=== PATIENT | female | born 1960 | race Caucasian/White ===

== ENCOUNTER 2023-05-11 07:43 | Emergency (ER) | payer BC, SELFPAY ==
[2023-05-11 08:10] VITALS: BP 132/88; PULSE 74; RESP 20; TEMP 36.7; O2SAT 96; BMI 36.5
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
--- NOTE | 2023-05-11 08:30 | CRLHL7_ITS ---
For Patients: As a result of the Century Cures Act, medical imaging exams and procedure reports are released immediately into your electronic medical record. You may view this report before your referring provider. If you have questions, please contact your health care provider. Indication: Trauma with deformity Comparison: None available. Technique: AP, lateral, and oblique views right wrist were obtained. Findings: There is demonstration of subtle cortical deformity of the distal radius likely representing a nondisplaced impaction fracture. Degenerative changes of the radiocarpal joint are appreciated. There is moderate soft tissue swelling with pronator fat pad displacement. Impression: Subtle cortical deformity of the distal radius consistent with impaction fracture with moderate soft tissue swelling and fat pad displacement. Dictated by Micah Peña MD @ 05/11/2023 8:53:07 AM (Electronically Signed)
== END 2023-05-11 09:32 | disposition home or self-care (01) ==
PROVIDERS: Emergency Provider Family Medicine
DX: S52.501A Unspecified fracture of the lower end of right radius, initial encounter for closed fracture (principal); V49.9XXA Car occupant (driver) (passenger) injured in unspecified traffic accident, initial encounter
CPT/HCPCS: 29125; 73110; 99283

== ENCOUNTER 2023-09-04 13:00 | Outpatient (RCR) | payer BC, SELFPAY ==
--- NOTE | 2023-07-02 14:38 | OT.OPOE ---
OT Outpatient Ortho Eval OT Outpatient Ortho Eval* Start: 07/02/23 14:08 Freq: Status: Active Protocol: Document 07/02/23 14:08 JUANY (Rec: 07/02/23 14:36 JUANY [id number]) E-signed By Halie Jordan, OTR/L, CLT OT OP Ortho Eval Details Complexity Complexity Medium Insurance Information Insurance Information Medicaid,Blue Cross/[employer] Outpatient History/Precautions Current Condition/Medical Diagnosis Referring Provider Dr. Te Hidalgo Treatment Diagnosis Stiffness of R wrist, Pain in R wrist Date of Onset 05/09/23 Other Precautions Note from provider visit on 06/14/23: Distal radius fracture is healing uneventfully. However, patient does have some stiffness of her wrist secondary to being immobilized in the short-arm cast. Recommendation at this time is for home exercise program and occupational therapy for wrist range of motion exercises with gradual return to activities as tolerated. Medical Conditions HTN,Arthritis Other Conditions Severe CMC arthritis of bilateral hands, Diamond's palsy Medical/Functional History Medical History Reviewed Yes Prior Level of Function/Mobility Patient is retired, lives with spouse in [place]. Prior to Injury she was fully independent with all ADLs/ IADLs Social History Employment Status Retired Ortho Subjective Subjective Subjective I have so much stiffness I can't use my right hand so everything is hard right now Pain Assessment Pain Present Pain Present Pain Reported Location Right Hand Description Tightness,Pressure,Throbbing, With Movement Intensity 6 OT Objective Data Hand Hand Dominance Right Hand Function Patient unable to make a full fist with R hand, lacking 1.5 inches More pain in middle and index fingers. Skin flakey and shedding from edema R hand wrist crease measured at 19.5 cm's and L non- effected hand was 17.9 cm's OT Problems Problems Problems Decreased Strength,Decreased Range of Motion,Decreased Dexterity,Pain,Decreased Coordination,Lifting,Gripping, Pinching Other Problems Writing,Opening Containers, Dressing,Computer,Fasteners, Sleeping Patient Potential Excellent Assessment Assessment Assessment This is a pleasant 62 year old [id number] female who arrives to the clinic for evaluation following a right distal radius fracture, which she sustained 05/09/23 (almost 8 weeks post injury). Injury occurred after she fell while stepping off of her couch and landed on her outstretched right hand. Two days after the injury, she was seen emergency department where x- rays revealed a nondisplaced distal radius fracture. She was subsequent placed into a splint. Patient had a nonoperative treatment consisting of immobilization in a short-arm cast and then instructed to avoid any weight -bearing or heavy lifting with the right upper extremity. She return for follow-up evaluation and repeat x-rays of the right wrist out of the cast. Imagining showed healing with no change in alignment. Provider then recommended therapy for stiffness of her wrist secondary to being immobilized in the short-arm cast. Recommendation at this time is for home exercise program and occupational therapy for wrist range of motion exercises with gradual return to activities as tolerated. In clinic visit, patient was also provided with a removable wrist brace, which she is wearing for heavy activity and while sleeping at night (as needed for comfort the next 1-2 weeks). Patient is working on weaning off the brace but currently feels more confident sleeping in it at [facility]. Patient is highly motivated and an excellent candiate for skilled therapy. She is instructed return for follow-up evaluation in 6 weeks on an as-needed basis should she have any persistent stiffness and or wrist discomfort. Occupational Therapy Treatment Plan - OP Potential Rehabilitation Potential Excellent Barriers Barriers to goal attainment Severe Arthritis Set Goals Goals Set with Patient Yes Goals Goals 1. Through activity participation in skilled therapy sessions, and consistency in performing a customized HEP, patient will improve capacity of tendons and muscles to manage load in order to have less pain with ADLs, work, leisure activities and IADLs. 2. Patient will resume the ability to hook her bra Independently with her R ( dominant) hand 3. Patient will resume the ability to wash her hair in the shower using the R ( dominant) hand Independently 4. Patient will wean from wearing the R hand/wrist braces at [facility] and during activity. 5. Patient will be Indep with a individualized, comprehensive HEP with participation >20 mins per day 5-6 days per week. Target Date 8 weeks Treatment Plan Treatment Plan Evaluation,Edema Control,Joint Mobilization,Manual Therapy, Ultrasound,Therapeutic Exercise,Therapeutic Activities,Education Expected Frequency 1-2x Week Expected Duration 8-10 Weeks Home Program Home Program Home Program Initiated Home Program Specifics Access Code: [email or web address] URL: [email or web address] Date: 07/02/2023 Prepared by: Halie Jordan Exercises - Seated Forearm Pronation and Supination AROM - 1 x daily - 7 x weekly - 3 sets - 10 reps - Wrist AROM Radial Ulnar Deviation - 1 x daily - 7 x weekly - 3 sets - 10 reps - Wrist AROM Wrist Circumduction - 1 x daily - 7 x weekly - 3 sets - 10 reps - Wrist Alphabet - 1 x daily - 7 x weekly - 3 sets - 10 reps - Forearm AAROM Supination and Pronation with Ball - 1 x daily - 7 x weekly - 3 sets - 10 reps - Thumb Opposition - 1 x daily - 7 x weekly - 3 sets - 10 reps - Wrist Tendon Gliding - 1 x daily - 7 x weekly - 3 sets - 10 reps - Wrist Prayer Stretch - 1 x daily - 7 x weekly - 3 sets - 10 reps - Finger Spreading - 1 x daily - 7 x weekly - 3 sets - 10 reps - Seated Finger Composite Flexion Stretch - 1 x daily - 7 x weekly - 3 sets - 10 reps - Hand Towel Scrunching - 1 x daily - 7 x weekly - 3 sets - 10 reps - Wrist AAROM Flexion and Extension - 1 x daily - 7 x weekly - 3 sets - 10 reps Certification Certification I Certify That: Therapy Services Provided, Therapy Plan Established, Therapy Plan Reviewed Recertification Information Recertification Information Initial Certification Date 07/02/23 Recertification Due Date 09/30/23 Provider Signature Shows Agreement With POC & Medical Necessity Physician Comment/Change Comment or Changes Physician NPI Number #
== END 2023-09-04 14:02 | disposition home or self-care (01) ==
PROVIDERS: Visit Provider Orthopaedic Surgery
DX: S52.501D Unspecified fracture of the lower end of right radius, subsequent encounter for closed fracture with routine healing (principal); M25.631 Stiffness of right wrist, not elsewhere classified; M25.531 Pain in right wrist; Z51.89 Encounter for other specified aftercare
CPT/HCPCS: 97110; 97140; 97166; X5282

== ENCOUNTER 2023-11-20 17:28 | Emergency (ER) | payer BC, SELFPAY ==
[2023-11-20 17:39] VITALS: BP 146/86; PULSE 84; RESP 18; TEMP 36.7; O2SAT 97; BMI 35.7
[2023-11-20] MEDS: cefuroxime axetiL 500 MG TABLET PO (18:46)
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
== END 2023-11-20 18:49 | disposition home or self-care (01) ==
LOC: ED 18:35
PROVIDERS: Emergency Provider Emergency Medicine; PCP Family Medicine
DX: J32.0 Chronic maxillary sinusitis (principal)
CPT/HCPCS: 99283; A9270

== ENCOUNTER 2023-11-21 09:39 | Emergency (ER) | payer BC, SELFPAY ==
[2023-11-21 09:47] VITALS: BP 185/87; PULSE 80; RESP 18; TEMP 37.3; O2SAT 96; BMI 36.5
--- NOTE | 2023-11-21 10:09 | ED_ITS ---
HPI - General Adult General Chief complaint: Skin/Abscess/Foreign Body Stated complaint: Sinus infection, face swelling Time Seen by Provider: 11/21/23 09:59 History of Present Illness HPI narrative: Patient was seen last night for sinusitis, started 1 dose of/cefuroxime. She has got some right cheek swelling and maxillary tenderness. She has no skin lesions no weakness of the face or eyelid droop. The patient was examined by Dr. Yu last night noted some purulence from the right nostril. Patient was concerned that the cefuroxime was 500s to 250 a dose. She also received prednisone in the past when she had a sinusitis not helped her quite a bit. Related Data Home Medications Medication Instructions Recorded Confirmed amlodipine 5 mg tablet 5 mg PO DAILY 05/11/23 11/20/23 fluticasone propionate 50 1 spray intranasal BID 05/11/23 11/20/23 mcg/actuation nasal spray,suspension losartan 100 1 tab PO DAILY 05/11/23 11/20/23 mg-hydrochlorothiazide 25 mg tablet montelukast 10 mg tablet 10 mg PO QPM 05/11/23 11/20/23 beclomethasone dipropionate 40 2 inh inhalation BID 11/20/23 11/20/23 mcg/actuation HFA breath activated aerosol (Qvar RediHaler) Previous Rx's Medication Instructions Recorded cefuroxime axetil 500 mg tablet 500 mg PO BID #20 tabs 11/20/23 prednisone 20 mg tablet 20 mg PO BID #10 tabs 11/21/23 Allergies Allergy/AdvReac Type Severity Reaction Status Date / Time No Known Drug Allergies Allergy Verified 11/20/23 17:44 Review of Systems 2 Status of ROS: Reports: 6 or more systems reviewed and unremarkable except as noted in History and below [facility] Medical History (Updated 11/21/23 @ 10:07 by Raphael Dickinson MD) Arthritis of both hands ?M19.041 - Primary osteoarthritis, right hand (ICD-10) ?M19.042 - Primary osteoarthritis, left hand (ICD-10) Asthma ?J45.909 - Unspecified asthma, uncomplicated (ICD-10) GERD (gastroesophageal reflux disease) ?K21.9 - Gastro-esophageal reflux disease without esophagitis (ICD-10) Surgical History History of cholecystectomy ?Z90.49 - Acquired absence of other specified parts of digestive tract (ICD- 10) History of endometrial ablation ?Z98.890 - Other specified postprocedural states (ICD-10) Social History Smoking Status: Never smoker Do you use any of these nicotine containing products: None Second hand tobacco smoke exposure: No How often do you have a drink containing alcohol: monthly or less How many standard drinks containing alcohol do you have on a typical day: 1 or 2 How often do you have six or more drinks on one occasion: Never AUDIT-C Alcohol total score: 1 Non-prescribed substance use: denies use service: No Exam Narrative: Exam Narrative: Objective: Patient's blood pressure is elevated her temp is 99.1? She has got right minimal maxillary sinus tenderness and slight soft tissue swelling, no cellulitis or redness, mouth is clear. Neck is supple. Const: Vital Signs, click to edit/add: Vital Signs - 24 hr 11/21/23 09:47 Temperature 99.1 F Pulse Rate [Pulse Oximeter] 80 Respiratory Rate 18 Blood Pressure [Ri ght Forearm] 185/87 H Pulse Oximetry 96 Oxygen Delivery Me thod Room Air Course Vital Signs Vital signs: Initial Vital Signs Temperature 99.1 F 11/21/23 09:47 Temperature Source Temporal Artery Scan 11/21/23 09:47 Pulse Rate 80 11/21/23 09:47 Pulse Rhythm Regular 11/21/23 09:47 Respiratory Rate 18 11/21/23 09:47 Blood Pressure 185/87 H 11/21/23 09:47 Blood Pressure Mean 119 H 11/21/23 09:47 Blood Pressure Position Sitting 11/21/23 09:47 Pulse Oximetry 96 11/21/23 09:47 Oxygen Delivery Method Room Air 11/21/23 09:47 Vital Signs Temperature 99.1 F 11/21/23 09:47 Pulse Rate 80 11/21/23 09:47 Respiratory Rate 18 11/21/23 09:47 Blood Pressure 185/87 H 11/21/23 09:47 Pulse Oximetry 96 11/21/23 09:47 Oxygen Delivery Method Room Air 11/21/23 09:47 Temperature 99.1 F 11/21/23 09:47 Pulse Rate 80 11/21/23 09:47 Respiratory Rate 18 11/21/23 09:47 Blood Pressure 185/87 H 11/21/23 09:47 Pulse Oximetry 96 11/21/23 09:47 Oxygen Delivery Method Room Air 11/21/23 09:47 Medications Administered Medications: Discontinued Medications Generic Name Dose Route Start Last Admin Trade Name Gato PRN Reason Stop Dose Admin Prednisone 20 mg 11/21/23 10:15 11/21/23 10:24 Prednisone 20 Mg Tablet PO 11/21/23 10:16 20 mg ONCE ONE Administration Medical Decision Making MDM Narrative Medical decision making narrative: 63-year-old female with right maxillary sinusitis with no evidence of Diamond's palsy or other facial weakness at this time. She does have cefuroxime at home I would add prednisone 20 mg now and then b.i.d. for 3-5 days. Warm pack the face hot liquids. Recheck with Primary Care not improving changes or concerns. Also discussed Diamond's palsy in if she notices any weakness or lid leg she should return to the ED promptly. Discharge Plan Discharge Clinical Impression: Facial swelling, Sinusitis Patient Disposition: Home w/ Parent or Adult Condition: Stable Additional Instructions: Continue the cefuroxime, will add prednisone to her regimen. Warm pack the fac e, hot liquids to drink. Recheck with primary care in the next few days not improving, return to ED sooner worsening or changes. Activity Level: Light activity Discharge Diet: Regular Prescriptions: New prednisone 20 mg tablet 20 mg PO BID Qty: 10 0RF No Action amlodipine 5 mg tablet 5 mg PO DAILY losartan-hydrochlorothiazide 100-25 mg tablet 1 tab PO DAILY montelukast 10 mg tablet 10 mg PO QPM fluticasone propionate 50 mcg/actuation spray,suspension 1 spray INTRANASAL BID Qvar RediHaler 40 mcg/actuation HFA aerosol breath activated 2 inh INHALATION BID cefuroxime axetil 500 mg tablet 500 mg PO BID Qty: 20 0RF Follow Up/Referrals: Maria T Fowler MD [Primary Care Provider] - Stand Alone Forms: [facility] Info Instructions
[2023-11-21] MEDS: predniSONE 20 MG TABLET PO (10:24)
== END 2023-11-21 10:25 | disposition home or self-care (01) ==
LOC: ED 10:13
PROVIDERS: Emergency Provider Family Medicine; PCP Family Medicine
DX: J32.0 Chronic maxillary sinusitis (principal); R22.0 Localized swelling, mass and lump, head
CPT/HCPCS: 99283; 99284; J7512

== ENCOUNTER 2025-03-29 11:31 | Emergency (ER) | payer BC, SELFPAY ==
[2025-03-29 11:34] VITALS: BP 194/69; PULSE 77; RESP 18; TEMP 37.1; O2SAT 95; BMI 35.7
--- NOTE | 2025-03-29 11:49 | ED_ITS ---
HPI - General Adult General Time Seen by Provider: 11:49 Date Seen: 03/29/25 Chief complaint: Unspecified Complaint, Adult Stated complaint: light-headed, cough, runny nose Time Seen by Provider: 03/29/25 11:49 Source: patient and RN notes reviewed Mode of arrival: ambulatory Limitations: no limitations History of Present Illness HPI narrative: Yuliana is a very pleasant 64-year-old female who comes to the emergency room with lightheadedness ongoing cough and yellow and green nasal congestion. Yuliana notes the onset of a sore throat approximately 8 days ago. She was then working outside and when she came in began to experience body aches. She notes that 5 days ago she had the onset of clear nasal discharge and coughing. Since that time the nasal discharge did stop but now has recurred and is yellow. She notes the coughing continues although perhaps slightly better but her states that she is coughing so hard that he feels like she is going to vomit. When she coughs she gets very lightheaded. Notes that she is lightheaded when she 1st gets up in the morning but seems to worsen throughout the day. Does state that she has not been eating very much because she has no appetite and that she has not been sleeping very well. She does note ear pain pre dating the onset of the sore throat. Throughout all of this she has not had a fever. Mild intermittent nausea without vomiting has been noted. At rest patient has no lightheadedness. Denies vertigo or spinning sensation. Related Data Home Medications ?Medication ?Instructions ?Recorded ?Confirmed amlodipine 5 mg tablet 5 mg PO DAILY 05/11/23 03/29/25 fluticasone propionate 50 1 spray intranasal BID 05/11/23 03/29/25 mcg/actuation nasal spray,suspension losartan 100 1 tab PO DAILY 05/11/23 03/29/25 mg-hydrochlorothiazide 25 mg tablet montelukast 10 mg tablet 10 mg PO QPM 05/11/23 03/29/25 beclomethasone dipropionate 40 2 inh inhalation BID 11/20/23 03/29/25 mcg/actuation HFA breath activated aerosol (Qvar RediHaler) Previous Rx's ?Medication ?Instructions ?Recorded cefuroxime axetil 500 mg tablet 500 mg PO BID #20 tabs 11/20/23 cefuroxime axetil 500 mg tablet 500 mg PO BID #20 tabs 03/29/25 prednisone 20 mg tablet 20 mg PO BID #10 tabs 03/29/25 Allergies Allergy/AdvReac Type Severity Reaction Status Date / Time No Known Drug Allergies Allergy Verified 11/20/23 17:44 Review of Systems Status of ROS: Reports: 6 or more systems reviewed and unremarkable except as noted in History and below [facility] Medical History Arthritis of both hands ?M19.041 - Primary osteoarthritis, right hand (ICD-10) ?M19.042 - Primary osteoarthritis, left hand (ICD-10) Asthma ?J45.909 - Unspecified asthma, uncomplicated (ICD-10) GERD (gastroesophageal reflux disease) ?K21.9 - Gastro-esophageal reflux disease without esophagitis (ICD-10) Surgical History History of cholecystectomy ?Z90.49 - Acquired absence of other specified parts of digestive tract (ICD- 10) History of endometrial ablation ?Z98.890 - Other specified postprocedural states (ICD-10) Social History Smoking Status: Never smoker Do you use any of these nicotine containing products: None Second hand tobacco smoke exposure: No How often do you have a drink containing alcohol: monthly or less How many standard drinks containing alcohol do you have on a typical day: 1 or 2 How often do you have six or more drinks on one occasion: Never AUDIT-C Alcohol total score: 1 Non-prescribed substance use: denies use service: No Exam Narrative: Exam Narrative: Alert and oriented. EOM is full. Face symmetrical. Oral cavity shows erythema on the soft palate. No significant swelling. Neck is supple without l ymphadenopathy. Heart with a regular rate and rhythm. Lungs are with decreased breath sounds in the bases few crackles noted on the right. Abdomen is soft nontender. Moving all extremities. Right TM is obscured by cerumen. Left TM is partially covered by cerumen in the anterior aspect bulging TM without significant erythema in the lower 2/3. No pain with external manipulation of the ear in the ear canal itself is without erythema. Const: Vital Signs, click to edit/add: Vital Signs - 24 hr 03/29/25 11:34 03/29/25 13:14 Temperature 98.7 F 97.2 F L Pulse Rate [Right Pulse Oximeter] 77 71 Respiratory Rate 18 18 Blood Pressure [Ri ght Forearm] 194/69 H 121/71 Pulse Oximetry 95 96 Oxygen Delivery Me thod Room Air Room Air Documenting provider has reviewed patient's vital signs: yes Course Course ED Course: Differential diagnosis includes but is not limited to URI/viral infection/pertusses/COVID/influenza/RSV. Also includes pneumonia, otitis media and/or sinusitis. Suggest antibiotic treatment for obvious left otitis. No evidence of central vertigo but lightheadedness suggests a multifactorial and peripheral process. Likely otitis combine with lack of sleep as well as lack of p.o. intake. Chest x-ray pending given the cough. Triple swab as well as pertusses pending. Vital Signs Vital signs: Initial Vital Signs Temperature 98.7 F 03/29/25 11:34 Temperature Source Temporal Artery Scan 03/29/25 11:34 Pulse Rate 77 03/29/25 11:34 Pulse Rhythm Regular 03/29/25 11:34 Pulse Strength 3+ Normal 03/29/25 11:34 Respiratory Rate 18 03/29/25 11:34 Blood Pressure 194/69 H 03/29/25 11:34 Blood Pressure Mean 110 H 03/29/25 11:34 Blood Pressure Position Sitting 03/29/25 11:34 Pulse Oximetry 95 03/29/25 11:34 Oxygen Delivery Method Room Air 03/29/25 11:34 Vital Signs Temperature 98.7 F 03/29/25 11:34 Pulse Rate 77 03/29/25 11:34 Respiratory Rate 18 03/29/25 11:34 Blood Pressure 194/69 H 03/29/25 11:34 Pulse Oximetry 95 03/29/25 11:34 Oxygen Delivery Method Room Air 03/29/25 11:34 Temperature 97.2 F L 03/29/25 13:14 Pulse Rate 71 03/29/25 13:14 Respiratory Rate 18 03/29/25 13:14 Blood Pressure 121/71 03/29/25 13:14 Pulse Oximetry 96 03/29/25 13:14 Oxygen Delivery Method Room Air 03/29/25 13:14 Medical Decision Making MDM Narrative Medical decision making narrative: 1. Left otitis media-suggests cefuroxime 500 mg p.o. b.i.d. times 10 days. This is actually patient's request as she does have significant issues with other antibiotics including abdominal pain and vomiting. She may also have a coexisting sinus infection as she does appear to be prone to that. Did request that she follow up in 10-14 days time in order to have recheck of her ear to ensure resolution. She will also need to have irrigation of her ears bilaterally. As there is a large amount of cerumen. 2. URI-tested negative for COVID influenza and RSV today. Chest x-ray without evidence of pneumonia. 3. Lightheadedness-does appear to be a peripheral process. No evidence of vertigo. No evidence of continued symptoms in all positions. No evidence of nystagmus. Likely combination of lack of sleep, lack of food and fluids as well as otitis. 4. Disposition-home at this time. Patient is also requested prednisone which is noted to have helped her with her cough in the past she does have underlying asthma. Prednisone 20 mg p.o. b.i.d. x5 days. Both medications were sent to her pharmacy. Yuliana is requested to return for worsening symptoms, onset of new symptoms and as needed. Note initial blood pressure 194/69. Blood pressure prior to departure 121 systolic. Medical Records Medical records reviewed: Yes I reviewed the patient's medical records Lab Data Lab results reviewed: Yes I reviewed the patient's lab results Labs: Lab Results 03/29/25 03/29/25 Range/Units 11:42 12:28 SARS-CoV-2 (PCR) Negative SARS-CoV-2 (Negative) Influenza Type A (PCR) Negative PCR FLU A (Negative) Influenza Type B (PCR) Negative PCR FLU B (Negative) RSV (PCR) Negative PCR RSV (Negative) Lab Acknowledgement Test Added Imaging Data Chest x-ray: Attestation: I have reviewed the pertinent imaging results. My impression: No obvious infiltrates Radiologist's impression: Cardiovasculature and mediastinum: Heart size is normal. Unremarkable mediastinum. Lungs and pleural spaces: Low lung volumes lungs are otherwise clear. No sign of infiltrate or mass. No sign of pleural effusion. No pneumothorax. Bones and soft tissues: No significant findings. IMPRESSION: Negative chest. Discharge Plan Discharge Clinical Impression: URI (upper respiratory infection) Otitis media Qualifiers: Otitis media type: unspecified Chronicity: acute Qualified Code(s): H66.90 - Otitis media, unspecified, unspecified ear Patient Disposition: Home, Self-Care Condition: Unchanged Additional Instructions: Start antibiotic cefuroxime for treatment of left ear infection and potential sinus infection. Please be aware that your cough may be strictly viral. Chest x-ray did not show any evidence of a pneumonia. Prednisone as directed. Please push fluids as much as possible-not just water, include Powerade Gatorade broth etc.. Return to the emergency room for worsening symptoms. Follow-up with your primary MD for ear check in proximally 10-14 days. Prescriptions: New cefuroxime axetil 500 mg tablet 500 mg PO BID Qty: 20 0RF prednisone 20 mg tablet 20 mg PO BID Qty: 10 0RF No Action amlodipine 5 mg tablet 5 mg PO DAILY losartan-hydrochlorothiazide 100-25 mg tablet 1 tab PO DAILY montelukast 10 mg tablet 10 mg PO QPM fluticasone propionate 50 mcg/actuation spray,suspension 1 spray INTRANASAL BID Qvar RediHaler 40 mcg/actuation HFA aerosol breath activated 2 inh INHALATION BID cefuroxime axetil 500 mg tablet 500 mg PO BID Qty: 20 0RF Follow Up/Referrals: Maria T Fowler MD [Primary Care Provider] - Stand Alone Forms: [employer] Info Instructions
--- NOTE | 2025-03-29 12:06 | CRLHL7_ITS ---
For Patients: As a result of the Century Cures Act, medical imaging exams and procedure reports are released immediately into your electronic medical record. You may view this report before your referring provider. If you have questions, please contact your health care provider. INDICATION: Cough. TECHNIQUE: Chest 1 views. COMPARISON: None. FINDINGS: Cardiovasculature and mediastinum: Heart size is normal. Unremarkable mediastinum. Lungs and pleural spaces: Low lung volumes lungs are otherwise clear. No sign of infiltrate or mass. No sign of pleural effusion. No pneumothorax. Bones and soft tissues: No significant findings. IMPRESSION: Negative chest. Dictated by German Jacome MD @ 03/29/2025 1:16:52 PM (Electronically Signed)
[2025-03-29 12:46] LABS: PCR FLU A Negative PCR FLU A (Negative); PCR FLU B Negative PCR FLU B (Negative); PCR RSV Negative PCR RSV (Negative); SARS PCR* Negative SARS-CoV-2 (Negative)
[2025-03-29 13:14] VITALS: BP 121/71; PULSE 71; RESP 18; TEMP 36.2; O2SAT 96
--- OUTSIDE RECORDS SUMMARY | 2025-03-29 17:47 | XMS_ITS | Clinical Summary ---
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 0 1 Active ACETAMINOPHEN (TYLENOL EXTRA STRENGTH ORAL) Take by mouth. Active loratadine-pseudo ephedrine, 10-240 mg, 24 hr (CLARITIN-D 24 HOUR) 10-240 mg per tablet Take 1 tablet by mouth once daily. 0 7 Active omeprazole (PRILOSEC) 20 mg Delayed-Release capsuleIndication s:Gastro-esophage al reflux disease without esophagitis TAKE 1 CAPSULE DAILY 90 Capsule 1 Active amLODIPine (NORVASC) 10 mg tabletIndications :Essential hypertension Take 1 Tablet (10 mg) by mouth once daily. 90 Tablet 3 4 Active losartan-hydrochl orothiazide (HYZAAR) 100-25 mg tabletIndications :Essential hypertension, benign Take 1 Tablet by mouth once daily. 90 Tablet 3 4 Active montelukast (SINGULAIR) 10 mg tabletIndications :Allergy, unspecified, initial encounter Take 1 Tablet (10 mg) by mouth at bedtime. 90 Tablet 3 4 Active beclomethasone dipropionate (Qvar RediHaler) 40 mcg/actuation HFA inhalerIndication s:Allergy, unspecified, initial encounter Inhale 2 Puffs by mouth two times daily. Doesn't need a spacer or shaking. 1 Each 11 4 Active fluticasone (50 mcg per actuation) nasal solution (FLONASE)Indicati ons:Allergy, unspecified, initial encounter Inhale 1 [place] in both nostrils two times daily. 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 09/04/2017 Resolved Problems Problem Noted Date Diagnosed Date Resolved Date Body mass index (BMI) 37.0-37.9, adult 03/14/2022 04/25/2023 Herpes zoster without complication 03/14/2022 04/25/2023 Immunizations Immunization Administration Dates Next Due COVID-19 vaccine ([employer]) PF, MDV 02/08/2021 COVID-19 vaccine ([employer]TI [employer] Combine 30mcg/0.3mL) 12YO+ RONEL-SUCROSE PF, MDV 03/15/2022 Influenza A (H1N1), Inactivated 11/17/2009 Influenza Intradermal PF 18-64 yrs 08/13/2012 Influenza Virus, Unspecified 08/12/2005 Influenza, IIV3 (Age 6-35 mos) 08/12/2009 Influenza, IIV3 (Age >=3 years) 08/21/2014 Influenza, IIV4 12/16/2018, 7,10/30/2017,2015,08/17/2016 Influenza, IIV4 (=>6mos) MDV 07/22/2020,09/15/20 19,11/20/2015 Influenza, Intradermal Inactivated 08/13/2012 Pneumococcal Poly,23-Valent (Pneumovax) 09/25/2011,09/25/2011 Pneumococcal conj 13-Valent (Prevnar 13) 10/05/2014,10/05/2014 Td (Age >=7 Years) 10/16/2005 Tdap 06/24/2015 Zoster (Shingrix-RZV, recombinant) 10/08/2020, Family History Medical History Relation Name Comments Coronary artery disease Brother Amblyopia Father Coronary artery disease Father Cancer-breast Maternal Aunt Coronary artery disease Mother Heart attack Mother Kidney failure Mother Pulmonary embolism Mother Amblyopia Sister Relation Name Status Comments Brother Alive Father Maternal Aunt Mother Sister Social History Tobacco Use Types Packs/Day Years Used Date Smoking Tobacco: Never Smokeless Tobacco: Never Alcohol Use Standard Drinks/Week Comments Not Currently 0 (1 standard drink = 0.6 oz pur e alcohol) rare PHQ-2 Answer Date Recorded PHQ-2 TOTAL SCORE 0 07/01/2024 Social Connections Answer Date Recorded Frequency of Communication with Friends and Fami ly 0 04/25/2023 Financial Resource Strain Answer Date R ecorded Difficulty of Paying Living Expenses 3 04/25/2023 Difficulty of Paying Living Expenses Not on file 04/25/2023 Food Insecurity Answer Date Recorded Worried About Running Out of Food in the Last Ye ar 1 04/25/2023 Transportation Needs Answer Date Record ed Lack of Transportation (Medical) 1 04/25/2023 Housing Stability Answer Date Recorded Unable to Pay for Housing in the Last Year 1 04/25/2023 Comments No Sex and Gender Information Value Date Recorded Sex Assigned at Female 03/15/2022 9:34 PM CDT Legal Sex Female 8:07 AM [employer] Gender Identity Female 03/15/2022 9:34 PM CDT Sexual Orientation Straight 03/15/2022 9: 34 PM CDT Obstetrics History Comments Menarche at 13 Last Filed Vital Signs Vital Sign Reading Time Taken Comments Blood Pressure 146/72 07/01/2024 1:02 PM CDT Pulse 80 07/01/2024 1:02 PM CDT Temperature 36.4 C (97.5 F) 03/15/2022 10:29 AM CDT Respiratory Rate 16 06/27/2013 2:00 PM CDT Oxygen Saturation 98% 03/15/2022 10: 29 AM CDT Inhaled Oxygen Concentration - - Weight 106.8 kg (235 lb 6.4 oz) 07/01/2024 1:02 PM CDT Height 168.7 cm (5' 6.42) 07/01/2024 1:02 PM CD T Body Mass Index 37.52 07/01/2024 1:02 PM CDT Plan of Treatment Upcoming Encounters Date Type Department Care Team (Late st Contact Info) Description 07/06/2025 10:00 AM CDT Office Visit [facility] [address] [place] [phone] [place] [address] [place] [address] Health Maintenance Due Date Last Done Comments Colonoscopy through age 75 2006 Mammogram for age 45-75 03/27/2012 03/27/2011 Pneumococcal series for age 50+ (3 of 3 - PCV20 or PCV21) 10/05/2019 10/05/2014, 10/05/2014, 09/25/2011, Additional history exists COVID-19 vaccine series ( - season) 2024 03/15/2022, 02/08/2021 Tetanus booster 06/24/2025 06/24/2015, 10/16/2005 BMI (ht and wt on same day) for age 18+ 07/01/2025 07/01/2024, 04/25/2023, 03/15/2022 Depression screening for age 12+ 07/01/2025 07/01/20 Influenza Vaccine (Season Ended) 2025 07/22/2020, 09/15/2019, 12/16/2018, Additional history exists Pap test for age 21-65 04/25/2028 04/25/2023, 2022 Lipids for age 45-75 07/01/2029 07/01/2024, 04/25/2023, 03/29/2022 RSV vaccine for adults or (1 - 1-dose 75+ series) 2036 Tdap Completed 06/24/2015 Zoster (shingles) series for age 50+ Completed 10/08/2020, 07/22/2020 HIV for age 15-65 Completed 04/25/2023 Hepatitis C screening for ag e 18-79 Completed 04/25/2023 Procedures Procedure Name Priority Date/Time Associated Diagnosis Comments LIPID PANEL W REFLEX MEASURED LDL Routine 07/01/2024 1:42 PM CDT Routine general medical examination at a health care facility LC HIV-1/O/2, 4TH GENERATION Routine 04/25/2023 1:02 PM CDT Screening for HIV (human immunodeficiency virus) LC HCV ANTIBODY RFX TO QUANT PCR Routine 04/25/2023 1:02 PM CDT Need for hepatitis C screening test HPV HIGH RISK Routine 04/25/2023 12:20 PM CDT Screening for cervical cancer XR MAMMO BILAT DIAG FFDM (IA) Routine 03/27/2011 2:29 PM CDT Enlarged lymph nodes from Last 3 Months or Most Recently Relevant to Health Maintenance Results * (ABNORMAL) LIPID PANEL W REFLEX MEASURED LDL (07/01/2024 1:42 PM CDT) CHOLESTEROL,TOTAL 216(H) 100 - 199 mg/dL 07/01/2024 10:40 PM CDT [facility] Comment: Cholesterol, Total Reference Ranges Desirable <200 mg/dL Borderline 200-239 mg/dL High >=240 mg/dL TRIGLYCERIDES 187(H) <150 mg/dL 07/01/2024 10:40 PM CDT [facility] HDL CHOLESTEROL 43 >40 mg/dL 10:40 PM CDT [facility] NON-HDL CHOLESTEROL 173(H) <145 mg/dl 07/01/2024 10:40 PM CDT [facility] CHOL/HDL RATIO 5.02(H) <4.50 07/01/2024 10:40 PM CDT [facility] LDL CHOLESTEROL 136(H) <=130 mg/dL 07/01/2024 10:40 PM CDT [facility] VLDL CHOLESTEROL 37(H) <=30 mg/dL 07/01/2024 10:40 PM CDT [facility] PROVIDER ORDERED STATUS RANDOM 07/01/2024 10:40 PM CDT [facility] Blood BLOOD SPECIMEN / Unknown Venipuncture / Unknown 07/01/2024 1:42 PM CDT 07/01/2024 1:42 PM CDT us Maria T Fowler MD CHEMISTRY Final Resu lt [facility] [address] [place] [address], [place] * LC HCV ANTIBODY RFX TO QUANT PCR (04/25/2023 1:02 PM CDT) Pathologist [facility] HCV Ab Non Reactive Non Reactive 04/27/2023 1:09 PM CDT [facility] Blood BLOOD SPECIMEN / Unknown Venipuncture / Unknown 04/25/2023 1:02 PM CDT 04/25/2023 1:06 PM CDT Narrative [facility] - 04/27/2023 1:09 PM CDT Performed at: [address] [place] [id number] [employer] Layer: Allen Syed MD, Phone: [phone] us Maria T Fowler MD LABORATORY Final Resu lt [facility]) [facility] [place] [address], [place] * LC HIV-1/O/2, 4TH GENERATION (04/25/2023 1:02 PM CDT) Pathologist [facility] HIV Scr 4th Gen Non Reactive Non Reactive 04/27/2023 8:37 AM CDT [facility] Comment: HIV Negative HIV-1/HIV-2 antibodies and HIV-1 p24 antigen were NOT detected. There is no laboratory evidence of HIV infection. Blood BLOOD SPECIMEN / Unknown Venipuncture / Unknown 04/25/2023 1:02 PM CDT 04/25/2023 1:06 PM CDT Narrative [facility] - 04/27/2023 8:37 AM CDT Performed at: [address] [id number] [employer] Layer: Allen Syed MD, Phone: [phone] Maria T Fowler MD LABORATORY Final Resu lt [facility] ([facility]) [address] [place] [id number], * HPV HIGH RISK (04/25/2023 12:20 PM CDT) TYPE 16 Negative Negative 04/30/2023 2:51 PM CDT [facility] TYPE 18 Negative Negative 04/30/2023 2:51 PM CDT [facility] OTHER HIGH RISK TYPES Negative Negative 04/30/2023 2:51 PM CDT [facility] Other (Cervical) Non-Blood / Unknown 04/25/2023 12:20 PM CDT 04/27/2023 12:16 PM CDT Narrative [facility] - 04/30/2023 2:51 PM CDT HPV types 16, 18, 31, 33, 35, 39, 45, 51, 52, 56, 58, 59, 66 and 68 DNA were undetectable or below the pre-set threshold. Methodology: Alejandro Junaid 4800 HPV Test Maria T Fowler MD MICROBIOLOGY Final Resu lt [facility] [address] [place] [address], [place] * XR MAMMO BILAT DIAG FFDM (03/27/2011 2:29 PM CDT) Anatomical Region Laterality Modality BREASTS, Breast Left, Breast Right Bilateral Mammography Narrative 03/27/2011 4:04 PM CDT 1. BILATERAL DIAGNOSTIC FULL-FIELD DIGITAL MAMMOGRAM WITH CAD. 2. RIGHT BREAST ULTRASOUND. INDICATION: Abnormal soft tissue in the upper outer quadrant of the right breast detected incidentally 03/14/2011 CT chest, [facility]. COMPARISON: 03/14/2011 CT chest reviewed. Patient has not had a prior mammogram. FINDINGS: Bilateral diagnostic full-field digital mammogram with computer aided detection. Benign layering milk of calcium type calcifications in the upper outer quadrant right breast. Accessory breast parenchyma upper outer quadrant right breast posteriorly accounts for the CT chest abnormality. Both breasts are heterogeneously dense, which does decrease the sensitivity of screening mammography. RIGHT BREAST ULTRASOUND: Benign asymmetric parenchyma upper outer quadrant right breast posteriorly accounts for the CT chest findings and correlates with the mammographic findings from today. Discussed benign findings with the patient. Recommend annual screening mammography. ACR 2 Benign Finding. Gordo Ball M.D. Breast Imaging, Body Imaging [facility] PBW/sanket / Procedure Note Gordo Ball - 03/27/2011 1. BILATERAL DIAGNOSTIC FULL-FIELD DIGITAL MAMMOGRAM WITH CAD. 2. RIGHT BREAST ULTRASOUND. INDICATION: Abnormal soft tissue in the upper outer quadrant of theright breast detected [facility] COMPARISON: 03/14/2011 CT chest reviewed. Patient has not had a priormammogram. FINDINGS: Bilateral diagnostic full-field digital mammogram with computeraided detection. Benign layering milk of calcium type calcifications in the upper outerquadrant right breast. Accessory breast parenchyma upper outer quadrantright breast posteriorly accounts for the CT chest abnormality. Bothbreasts are heterogeneously dense, which does decrease the sensitivity ofscreening mammography. RIGHT BREAST ULTRASOUND: Benign asymmetric parenchyma upper outerquadrant right breast posteriorly accounts for the CT chest findings andcorrelates with the mammographic findings from today. Discussed benign findings with the patient. Recommend annual screeningmammography. ACR 2 Benign Finding. Gordo Ball M.D. Breast Imaging, Body Imaging [facility] PBW/sanket / Nader Edmondson MD MAMMO Final Result from Last 3 Months or Most Recently Relevant to Health Maintenance Insurance [facility] [place] Advance Directives * Full Code (Latest Code Status on File) Date Activated Date Inactivated Comments 06/27/2013 10:08 AM 06/27/2013 12:21 PM Care Teams Fish Processing Supervisor Relationship Specialty [place] [address] [place] [address] PCP - General Family Practice 03/14/22
[2025-04-01 11:14] LABS: B. pertussis/parapertus Source Not Provided; Bordetella parapertussis PCR Not Detected; Bordetella pertussis by PCR Not Detected
== END 2025-03-29 13:46 | disposition home or self-care (01) ==
PROVIDERS: Emergency Provider Family Medicine; PCP Family Medicine
DX: J06.9 Acute upper respiratory infection, unspecified (principal); H66.92 Otitis media, unspecified, left ear; R42 Dizziness and giddiness
CPT/HCPCS: 36415; 71045; 87631; 99284